=== PATIENT | female | born 1985 | race African-American/Black ===

== ENCOUNTER 2021-11-01 12:30 | Emergency (ER) | payer MEDICAID ==
[~2021-11-01] VITALS: Ht 170.2 cm; Wt 200.0 kg
[2021-11-01 13:04] LABS: BASOPHILS % 0.8 % (0.0-2.0); EOSINOPHILS % 0.6 % (0.0-5.0); HEMOGLOBIN. 12.4 g/dL (12.0-16.0); LYMPHOCYTES % 18.8 % (20.0-50.0); MEAN CORPUSCULAR HEMOGLOBIN 28.4 pg (28.0-32.0); MEAN CORPUSCULAR VOLUME 82.5 fL (81.0-99.0); MEAN PLATELET VOLUME 6.8 fl (7.4-10.4); MONOCYTES % 4.5 % (2.0-8.0); NEUTROPHILS % 75.3 % (40.0-76.0); PLATELET 358 x1000/uL (130-400); RED BLOOD CELL COUNT 4.36 mill/uL (4.2-5.4); RED CELL DISTRIBUTION WIDTH 14.9 % (11.6-14.6)
[2021-11-01 13:11] LABS: CHLORIDE 108 mEq/L (98-107)
[2021-11-01] MEDS: BACITRACIN ZINC OINT UDPKT TOP ONE (14:04)
[2021-11-01] MEDS: LIDOCAINE HCL/EPINEPHRINE 1%-EPI 1:100,000 20 ML VIAL INFIL ONE (14:04)
[2021-11-01] MEDS: VANCOMYCIN 1G PREMIX 200 ML IV ONE (14:04)
[2021-11-01] MEDS: PIPERACILLIN/TAZ 3.375G PREMIX 50 ML IV ONE (14:04)
[2021-11-01 14:10] LABS: CLARITY URINE CLEAR (CLEAR); COLOR URINE YELLOW (YELLOW); KETONES URINE TRACE (NEGATIVE); LEUKOCYTE ESTERASE URINE NEGATIVE (NEGATIVE); NITRITE URINE NEGATIVE (NEGATIVE); OCCULT BLOOD URINE NEGATIVE (NEGATIVE); PROTEIN URINE NEGATIVE (NEGATIVE); SPECIFIC GRAVITY URINE 1.032 (1.005-1.030); UROBILINOGEN URINE 0.2 E.U./dL (0.2-1.0)
[2021-11-01 15:26] LABS: HCG SCREEN NEGATIVE
[2021-11-01] MEDS ORDERED: IOHEXOL-300 100 ML BOTTLE ONE (16:59)
[2021-11-01] MEDS ORDERED: ONDANSETRON HCL 4MG/2ML INJ IV STA (18:17)
[2021-11-01] MEDS ORDERED: MORPHINE SULFATE 4 MG/ML CPJ (NOT FOR IM USE) IV STA (18:17)
[2021-11-01] MEDS ORDERED: PIPERACILLIN/TAZ 3.375G PREMIX 50 ML IV SCH (18:30)
[2021-11-02] MEDS ORDERED: PIPERACILLIN/TAZOBACTAM 3.375GM/50ML PREMIX IV ONE ×2 (13:00→14:30)
[2021-11-02] MEDS: VANCOMYCIN 1G PREMIX 200 ML IV SCH (13:15)
[2021-11-02] MEDS: PIPERACILLIN/TAZ 3.375G PREMIX 50 ML IV NR (14:43)
[2021-11-02] MEDS: MORPHINE SULFATE 4 MG/ML CPJ (NOT FOR IM USE) IV ONE (14:44)
[2021-11-02] MEDS ORDERED: CEPH500C2 MT (19:43)
[2021-11-02] MEDS ORDERED: SULF1TAB48 MT (19:44)
[2021-11-02 20:10] VITALS: BP 137/83
== END 2021-11-02 20:20 | disposition left against medical advice (07) ==
LOC: ER 12:30
DX: K12.2 Cellulitis and abscess of mouth (principal); E11.9 Type 2 diabetes mellitus without complications; I49.9 Cardiac arrhythmia, unspecified; Z20.822 Contact with and (suspected) exposure to COVID-19; Z98.890 Other specified postprocedural states
CPT/HCPCS: 10060; 36415; 70491; 71045; 80053; 81003; 83605; 84703; 85025; 87040; 87086; 87426; 93005; 96365; 96367; 96368; 96375; 99285; J2270; J2543; J3370; J3490; Q9967

== ENCOUNTER 2021-11-08 17:21 | Emergency (ER) | payer MEDICAID ==
[~2021-11-08] VITALS: Ht 172.7 cm; Wt 260.0 kg
[~2021-11-08 17:21] MED LIST: CEPH500C2 MT; SULF1TAB48 MT
[2021-11-08] MEDS ORDERED: TRAM50TA MT (18:57)
[2021-11-08 19:57] VITALS: BP 136/75
== END 2021-11-08 19:57 | disposition home or self-care (01) ==
LOC: ER 17:21
DX: Z48.00 Encounter for change or removal of nonsurgical wound dressing (principal); L02.01 Cutaneous abscess of face; E11.9 Type 2 diabetes mellitus without complications; I10 Essential (primary) hypertension
CPT/HCPCS: 99281